=== PATIENT | male | born 1945 | race Two or more races ===

== ENCOUNTER 2019-03-04 15:35 | Emergency (ER) | payer MEDICARE, MEDICAID ==
[~2019-03-04] VITALS: Ht 177.8 cm; Wt 99.8 kg
[2019-03-04] MEDS ORDERED: ASPIRIN 325 MG TABLET ONE (15:54)
[2019-03-04] MEDS ORDERED: ASPI-1169 PO (15:55)
[2019-03-04] MEDS ORDERED: METO25TA3 PO (15:55)
[2019-03-04] MEDS ORDERED: MULT-447 PO (15:55)
[2019-03-04] MEDS ORDERED: ATOR10TA PO (15:55)
[2019-03-04] MEDS ORDERED: TAMS-12 PO (15:55)
[2019-03-04] MEDS ORDERED: OMEG10006 PO (15:55)
[2019-03-04] MEDS ORDERED: LOSA25TA27 PO (15:55)
--- NOTE | 2019-03-04 15:58 | NUR ---
patient came in to the ER c/o chest pressure like pain. On room air, breathing evenly and unlabored. Connected to the monitor and pulse ox. kept comfortable, will continue to monitor accordingly.
[2019-03-04] MEDS ORDERED: ASPIRIN 325 MG TABLET PO ONE (16:00)
--- NOTE | 2019-03-04 16:01 | NUR ---
Dr. Elder at bedside for eval.
[2019-03-04 16:03] LABS: BASOPHILS # (AUTO) 0.1 /CMM (0.0-0.2); BASOPHILS % (AUTO) 0.8 % (0.0-2.0); EOSINOPHILS % (AUTO) 1.6 % (0.0-6.0); HEMATOCRIT 45 % (39-51); HEMOGLOBIN 15.2 g/dL (13.5-17.5); LYMPHOCYTES % (AUTO) 28.3 % (20.0-44.0); MEAN CORPUSCULAR HGB CONC 34 g/dl (31.0-36.0); MEAN CORPUSCULAR VOLUME 88 fL (80-96); MONOCYTES # (AUTO) 0.6 /CMM (0.1-1.30); MONOCYTES % (AUTO) 8.4 % (2.0-12.0); NEUTROPHILS # (AUTO) 4.2 /CMM (1.8-8.9); NEUTROPHILS % (AUTO) 60.9 % (43.0-81.0); PLATELET COUNT (AUTO) 166 /CMM (150-450)
[2019-03-04 16:13] LABS: CALCIUM, SERUM 9.2 mg/dL (8.5-10.1); CARBON DIOXIDE 31 mmol/L (21-32); CHLORIDE 103 mmol/L (98-107); CREATININE 1.2 mg/dL (0.6-1.3); GLUCOSE 106 mg/dL (74-106); POTASSIUM 4.7 mmol/L (3.5-5.1); SODIUM SERUM 136 mmol/L (136-145); UREA NITROGEN, BLOOD 14 mg/dL (7-18)
[2019-03-04 16:28] LABS: ALANINE AMINOTRANSFERASE 31 U/L (12-78); ALBUMIN 3.8 g/dL (3.4-5.0); ALKALINE PHOSPHATASE 57 U/L (46-116); ASPARTATE AMINOTRANSFERASE 22 U/L (15-37); B-TYPE NATRIURETIC PEPTIDE 57 PG/ML (0-125); BILIRUBIN,DIRECT 0.3 mg/dL (0.0-0.2); BILIRUBIN,TOTAL 1.4 mg/dL (0.2-1.0); TOTAL PROTEIN, SERUM 6.9 g/dL (6.4-8.2)
--- NOTE | 2019-03-04 17:00 | NUR ---
Patient does not wish to proceed with medical care recommended by Dr. DAVIS. Patient given information related to possible complications, up to and including , which could occur as a result of leaving the hospital at this time. Patient verbalizes understanding of risks involved due to leaving against medical advice. Patient has signed AMA form. IV removed. Catheter intact and site benign. Pressure and 4x4 applied to site. No bleeding noted. Patient discharged to home with daughter. Denies chest pain and or sob at this time. Patient verbalizes understanding of instruction.
[2019-03-04 17:24] VITALS: BP 133/69
== END 2019-03-04 17:06 | disposition left against medical advice (07) ==
LOC: ER 15:42 → TELE1 17:11 → UNDOADMIN 17:11
DX: R07.89 Other chest pain (principal); I10 Essential (primary) hypertension; Z95.818 Presence of other cardiac implants and grafts
CPT/HCPCS: 36415; 71045-TC; 80048-TC; 80076-TC; 83880; 84484-TC; 85025-TC; G0378